=== PATIENT | female | born 1985 | race Caucasian/White ===

== ENCOUNTER 2016-11-27 06:53 | Day surgery (SDC) | payer OTHER ==
[~2016-11-27] VITALS: Ht 152.4 cm; Wt 89.8 kg
[~2016-11-27 06:53] MED LIST: ATORVASTATIN CA20 MG PO; BUPROPION XL300 MG PO; CARAFATE1 GM PO; CYCLOBENZAPRINE10 MG PO; FLEXERIL10 MG PO; HYDROCODON-ACE1 EAC7 PO; IBUPROFEN800 MG PO; INDOCIN25 MG PO; METFORMIN HCL500 MG PO; MOTRIN800 MG PO; NORCO 5/3251 TABLET PO; NORCO 7.5/321 TABLET PO; PERCOCET 5/31 TABLET PO; RANITIDINE HCL150 MG PO; SKELAXIN800 MG PO; VALIUM5 MG PO; VENTOLIN HFA18 GM IH; WELLBUTRIN XL300 MG PO; ZOFRAN4 MG PO
[2016-11-27 07:30] VITALS: BP 115/61
[2016-11-27 07:32] LABS: ADD MIUA? YES; BILIRUBIN NEGATIVE; BLOOD NEGATIVE; COLOR YELLOW ((YELLOW)); GLUCOSE (STRIP) NEGATIVE; KETONES NEGATIVE; LEUKOCYTES NEGATIVE; NITRITE NEGATIVE; PROTEIN (STRIP) NEGATIVE; SPECIFIC GRAVITY 1.026 (1.000-1.030)
[2016-11-27 07:48] LABS: BACTERIA 1+; CASTS NONE SEEN /LPF; CRYSTALS NONE SEEN; EPITHELIAL CELLS 2+; MUCUS TRACE; RED BLOOD CELLS 0-5 /HPF (0-5); WHITE BLOOD CELLS RARE /HPF (0-5)
[2016-11-27 07:53] LABS: HEMATOCRIT 38.9 % (36.0-46.0); MCHC 32.6 G/DL (30.0-36.0); MEAN PLAT.VOLUME 9.9 uM^3 (9.5-12.4); PLATELET COUNT 297 K/uL (156-360); RBC DIS.WIDTH-CV 12.9 % (11.8-14.6); RBC DIS.WIDTH-SD 43.4 % (39-53); RED BLOOD COUNT 4.23 M/uL (3.80-5.20); WHITE BLOOD COUNT 5.7 K/uL (4.1-10.2)
[2016-11-27 08:17] LABS: QUANTITATIVE HCG < 4.0 MIU/ML
[2016-11-27 08:53] LABS: ALKALINE PHOSPHATASE 48 IU/L (3-129); AMYLASE 37 IU/L (1-118); ANION GAP 11 MEQ/L (2-14); CHLORIDE 101 MEQ/L (99-109); GFR ESTIMATE (CALCULATED) > 59 mL/min/; GLUCOSE 104 mg/dL (70-99); LIPASE 17 U/L (1.0-51.0); SAMPLE HEMOLYSIS CHECK 0; SAMPLE ICTERIC CHECK 0; SAMPLE LIPEMIA CHECK 0; SODIUM 139 MEQ/L (136-147); TOTAL BILIRUBIN 0.3 MG/DL (0.0-1.0); UREA NITROGEN (BUN) 15 mg/dL (9-23)
[2016-11-27] MEDS ORDERED: PERCOCET 5/31 TABLET PO (10:49)
[2016-11-27] MEDS ORDERED: COLACE100 MG PO (10:49)
[2016-11-27 12:59] VITALS: BP 124/80
[2016-11-27 13:55] VITALS: BP 112/64
[2016-11-27 14:53] LABS: INTERNAL CONTROL VALID? YES
== END 2016-11-27 14:20 | disposition home or self-care (01) ==
LOC: SDC 06:53
PROVIDERS: Surgery
PROC: 0FT44ZZ Resection of Gallbladder, Percutaneous Endoscopic Approach (ICD-10-PCS; principal; 2016-11-27)
DX: K80.10 Calculus of gallbladder with chronic cholecystitis without obstruction (principal); E28.2 Polycystic ovarian syndrome; R42 Dizziness and giddiness; J45.909 Unspecified asthma, uncomplicated; Z79.51 Long term (current) use of inhaled steroids
CPT/HCPCS: 80048; 80076; 81003; 82150; 83690; 84702; 84703; 85027; 88304; 93005; J0330; J0690; J1100; J1170; J1885; J2250; J2405; J2710; J2765; J3010

== ENCOUNTER 2017-02-10 21:39 | Emergency (ER) | payer OTHER ==
[~2017-02-10] VITALS: Ht 152.4 cm; Wt 92.7 kg
[~2017-02-10 21:39] MED LIST changes: +COLACE100 MG PO
[2017-02-10 21:42] VITALS: BP 107/70
[2017-02-10 22:30] LABS: MCH 29.9 PG (29.0-34.0); MCHC 33.6 G/DL (30.0-36.0); MEAN PLAT.VOLUME 9.4 uM^3 (9.5-12.4); PLATELET COUNT 388 K/uL (156-360); RBC DIS.WIDTH-CV 12.3 % (11.8-14.6); RBC DIS.WIDTH-SD 40.2 % (39-53); RED BLOOD COUNT 4.38 M/uL (3.80-5.20); WHITE BLOOD COUNT 8.8 K/uL (4.1-10.2)
[2017-02-10 22:41] LABS: CHLORIDE 103 mEq/L (99-109); POTASSIUM 3.7 mEq/L (3.7-5.4); SODIUM 139 mEq/L (136-147)
[2017-02-10 22:43] LABS: GLUCOSE 115 mg/dL (70-99)
[2017-02-10 22:44] LABS: ANION GAP 10 MEQ/L (2-14)
[2017-02-10 22:45] LABS: TOTAL BILIRUBIN 0.4 mg/dL (0.0-1.0)
[2017-02-10 22:46] LABS: ALKALINE PHOSPHATASE 52 IU/L (3-129); GFR ESTIMATE (CALCULATED) > 59 mL/min/
[2017-02-10 22:48] LABS: UREA NITROGEN (BUN) 9 mg/dL (9-23)
[2017-02-10 22:55] LABS: QUANTITATIVE HCG < 4.0 MIU/ML
== END 2017-02-10 23:52 | disposition left against medical advice (07) ==
LOC: EME 21:39
DX: G89.18 Other acute postprocedural pain (principal); Z53.21 Procedure and treatment not carried out due to patient leaving prior to being seen by health care provider
CPT/HCPCS: 80053; 81003; 84702; 85027

== ENCOUNTER 2017-03-18 11:46 | Emergency (ER) | payer OTHER ==
[~2017-03-18] VITALS: Ht 154.9 cm; Wt 90.8 kg
[2017-03-18 14:06] LABS: HEMATOCRIT 40.9 % (36.0-46.0); MCHC 33.3 G/DL (30.0-36.0); MCV 90.3 FL (83-99); MEAN PLAT.VOLUME 9.4 uM^3 (9.5-12.4); PLATELET COUNT 345 K/uL (156-360); RBC DIS.WIDTH-CV 12.4 % (11.8-14.6); RBC DIS.WIDTH-SD 40.9 % (39-53); RED BLOOD COUNT 4.53 M/uL (3.80-5.20); WHITE BLOOD COUNT 5.6 K/uL (4.1-10.2)
[2017-03-18 14:18] LABS: CHLORIDE 105 mEq/L (99-109); SODIUM 139 mEq/L (136-147)
[2017-03-18 14:21] LABS: GLUCOSE 120 mg/dL (70-99)
[2017-03-18 14:22] LABS: ANION GAP 8 MEQ/L (2-14)
[2017-03-18 14:23] LABS: TOTAL BILIRUBIN 0.2 mg/dL (0.0-1.0)
[2017-03-18 14:24] LABS: ALKALINE PHOSPHATASE 45 IU/L (3-129); GFR ESTIMATE (CALCULATED) > 59 mL/min/
[2017-03-18 14:25] LABS: UREA NITROGEN (BUN) 11 mg/dL (9-23)
[2017-03-18 14:27] LABS: TROP-I INTERPRETATION NEGATIVE; TROPONIN-I < 0.01 ng/mL (0.0-0.30)
[2017-03-18 14:34] LABS: QUANTITATIVE HCG < 4.0 MIU/ML
[2017-03-18] MEDS ORDERED: TOPIRAMATE25 MG PO (16:16)
[2017-03-18] MEDS ORDERED: SERTRALINE HCL25 MG PO (16:16)
[2017-03-18 16:17] VITALS: BP 102/65
== END 2017-03-18 16:19 | disposition home or self-care (01) ==
LOC: EME 11:46
PROVIDERS: Emergency Medicine
DX: G43.109 Migraine with aura, not intractable, without status migrainosus (principal); R07.89 Other chest pain; J45.909 Unspecified asthma, uncomplicated; F32.9 Major depressive disorder, single episode, unspecified; I25.2 Old myocardial infarction
CPT/HCPCS: 80053; 84484; 84702; 85027; 93005; 99281; 99285; J1200; J2060; J2765; J7030